=== PATIENT | male | born 1965 | race African-American/Black ===

== ENCOUNTER 2017-09-28 15:35 | Emergency (ER) | payer MEDICAID ==
[~2017-09-28] VITALS: Ht 190.5 cm; Wt 82.0 kg
[2017-09-28] MEDS ORDERED: ACETAMINOPHEN 325MG TABLET PO ONE (21:15)
[2017-09-28 23:53] LABS: CLARITY URINE CLEAR (CLEAR); COLOR URINE DARK YELLOW (YELLOW); KETONES URINE TRACE (NEGATIVE); LEUKOCYTE ESTERASE URINE TRACE (NEGATIVE); NITRITE URINE NEGATIVE (NEGATIVE); OCCULT BLOOD URINE NEGATIVE (NEGATIVE); PROTEIN URINE TRACE (NEGATIVE); SPECIFIC GRAVITY URINE 1.037 (1.005-1.030)
[2017-09-29] MEDS ORDERED: IBUPROFEN 600MG TABLET PO ONE
[2017-09-29 02:31] LABS: BASOPHILS % 2.1 % (0.0-2.0); EOSINOPHILS % 2.1 % (0.0-5.0); HEMATOCRIT. 38.7 % (42.0-52.0); HEMOGLOBIN. 12.8 g/dL (14.0-18.0); LYMPHOCYTES % 42.7 % (20.0-50.0); MEAN CORPUSCULAR HEMOGLOBIN 27.2 pg (28.0-32.0); MEAN CORPUSCULAR VOLUME 82.3 fL (80.0-94.0); MEAN PLATELET VOLUME 7.2 fl (7.4-10.4); MONOCYTES % 9.4 % (2.0-8.0); NEUTROPHILS % 43.7 % (40.0-76.0); PLATELET 402 x1000/uL (130-400); RED BLOOD CELL COUNT 4.71 mill/uL (4.7-6.1); RED CELL DISTRIBUTION WIDTH 14.1 % (11.6-14.6)
[2017-09-29 02:37] LABS: CHLORIDE 105 mEq/L (98-107)
[2017-09-29 02:41] VITALS: BP 156/72
[2017-09-29 02:45] LABS: CARBON DIOXIDE 31 mEq/L (21-32)
== END 2017-09-29 05:01 | disposition home or self-care (01) ==
LOC: ER 15:55
DX: S02.81XA Fracture of other specified skull and facial bones, right side, initial encounter for closed fracture (principal); S02.40CA Maxillary fracture, right side, initial encounter for closed fracture; S20.211A Contusion of right front wall of thorax, initial encounter; F41.9 Anxiety disorder, unspecified; V19.9XXA Pedal cyclist (driver) (passenger) injured in unspecified traffic accident, initial encounter; Y93.55 Activity, bike riding; Y92.89 Other specified places as the place of occurrence of the external cause; Y99.8 Other external cause status; Z88.0 Allergy status to penicillin; Z88.6 Allergy status to analgesic agent
CPT/HCPCS: 36415; 70450; 70486; 71101; 80053; 81001; 85025; 99285